=== PATIENT | female | born 1950 | race Caucasian/White ===

== ENCOUNTER 2016-05-23 04:36 | Inpatient (IN) | payer MEDICARE ==
[~2016-05-23 04:36] MED LIST: BUSPIRONE HCL15 MG PO; DEMECLOCYCLINE300 MG PO; LEVOTHYROXINE50 MCG PO; METOPROLOL SUC100 MG PO; NEURONTIN 300300 MG PO; NORCO 7.5-3251 EACH PO; OMEPRAZOLE20 MG PO; PREDNISONE 10 M10 MG PO; PROZAC 20 MG CA20 MG PO; QUETIAPINE FUMA50 MG PO; SILVADENE CREAM20 GM TOP; SPIRIVA18 MCG INH; SYMBICORT 16010.2 GM INH; ZANAFLEX4 M1 PO
[2016-05-23] MEDS ORDERED: TYLENOL 325MG325 MG PO (06:22)
[2016-05-23] MEDS ORDERED: LIPITOR TAB 2020 MG PO (06:24)
[2016-05-23] MEDS ORDERED: NORVASC 5 MG TAB5 MG PO (06:24)
[2016-05-23] MEDS ORDERED: CATAPRES-TTS 11 EACH TD (06:28)
[2016-05-23] MEDS ORDERED: COLESTID1 GM PO (06:29)
[2016-05-23] MEDS ORDERED: PHENERGAN 25 MG25 M1 PO (06:30)
[2016-05-23] MEDS ORDERED: LASIX40 MG PO (06:34)
[2016-05-23] MEDS ORDERED: LISINOPRIL30 MG PO (06:36)
[2016-05-23 08:19] LABS: HEMOGLOBIN 8.6 gm/dl (12.3-15.3); RED BLOOD COUNT 2.62 M/UL (4.00-5.10); WHITE BLOOD COUNT 16.4 K/UL (4.5-11.0)
[2016-05-23 08:45] LABS: BUN/CREATININE RATIO 23 (0-10)
[2016-05-23 13:19] LABS: HEMOGLOBIN 9.5 gm/dl (12.3-15.3); WHITE BLOOD COUNT 15.3 K/UL (4.5-11.0)
[2016-05-23 13:20] LABS: RED BLOOD COUNT 2.96 M/UL (4.00-5.10)
[2016-05-24 03:41] LABS: HEMOGLOBIN 8.5 gm/dl (12.3-15.3); RED BLOOD COUNT 2.65 M/UL (4.00-5.10); WHITE BLOOD COUNT 18.5 K/UL (4.5-11.0)
[2016-05-24 03:59] LABS: BUN/CREATININE RATIO 24 (0-10)
[2016-05-24 19:16] LABS: HEMOGLOBIN 9.2 gm/dl (12.3-15.3); RED BLOOD COUNT 2.88 M/UL (4.00-5.10); WHITE BLOOD COUNT 22.5 K/UL (4.5-11.0)
[2016-05-24 19:35] LABS: BUN/CREATININE RATIO 19 (0-10)
[2016-05-25 04:35] LABS: HEMOGLOBIN 8.8 gm/dl (12.3-15.3); RED BLOOD COUNT 2.74 M/UL (4.00-5.10)
[2016-05-25 05:09] LABS: WHITE BLOOD COUNT 15.9 K/UL (4.5-11.0)
[2016-05-25 05:18] LABS: BUN/CREATININE RATIO 21 (0-10)
[2016-05-26 04:13] LABS: RED BLOOD COUNT 2.75 M/UL (4.00-5.10); WHITE BLOOD COUNT 10.8 K/UL (4.5-11.0)
[2016-05-26 04:23] LABS: BUN/CREATININE RATIO 25 (0-10)
[2016-05-27 05:54] LABS: BUN/CREATININE RATIO 19 (0-10)
[2016-05-28 05:51] LABS: HEMOGLOBIN 10.3 gm/dl (12.3-15.3)
[2016-05-28 05:56] LABS: RED BLOOD COUNT 3.22 M/UL (4.00-5.10); WHITE BLOOD COUNT 7.8 K/UL (4.5-11.0)
[2016-05-28 06:15] LABS: BUN/CREATININE RATIO 18 (0-10)
[2016-05-29 06:40] LABS: HEMOGLOBIN 9.8 gm/dl (12.3-15.3); RED BLOOD COUNT 3.12 M/UL (4.00-5.10)
[2016-05-29 06:58] LABS: BUN/CREATININE RATIO 19 (0-10)
[2016-05-30 05:55] LABS: HEMOGLOBIN 9.5 gm/dl (12.3-15.3); RED BLOOD COUNT 2.98 M/UL (4.00-5.10)
[2016-05-30 05:56] LABS: WHITE BLOOD COUNT 9.8 K/UL (4.5-11.0)
[2016-05-30 06:17] LABS: BUN/CREATININE RATIO 24 (0-10)
[2016-05-31 05:35] LABS: HEMOGLOBIN 9.6 gm/dl (12.3-15.3); RED BLOOD COUNT 2.97 M/UL (4.00-5.10); WHITE BLOOD COUNT 11.9 K/UL (4.5-11.0)
[2016-06-01 05:49] LABS: HEMOGLOBIN 8.8 gm/dl (12.3-15.3); RED BLOOD COUNT 2.81 M/UL (4.00-5.10); WHITE BLOOD COUNT 9.4 K/UL (4.5-11.0)
[2016-06-01 06:13] LABS: BUN/CREATININE RATIO 31 (0-10)
== END 2016-06-01 13:38 | DRG 871 ==
LOC: CCU 05:34 → M/S 05:34 → CCU 07:41 → M/S 05-26 08:32
PROVIDERS: Family Medicine; Internal Medicine Pulmonary Disease; ADMIT Family Medicine
PROC: 5A1945Z Respiratory Ventilation, 24-96 Consecutive Hours (ICD-10-PCS; principal; 2016-05-23)
DX: A41.9 Sepsis, unspecified organism (principal); J96.21 Acute and chronic respiratory failure with hypoxia; I50.33 Acute on chronic diastolic (congestive) heart failure; J69.0 Pneumonitis due to inhalation of food and vomit; R65.21 Severe sepsis with septic shock; E87.2 Acidosis; E46 Unspecified protein-calorie malnutrition; Z68.1 Body mass index [BMI] 19.9 or less, adult; G61.81 Chronic inflammatory demyelinating polyneuritis; E87.1 Hypo-osmolality and hyponatremia; C34.90 Malignant neoplasm of unspecified part of unspecified bronchus or lung; J98.11 Atelectasis; K86.1 Other chronic pancreatitis; I11.0 Hypertensive heart disease with heart failure; J44.9 Chronic obstructive pulmonary disease, unspecified; I70.203 Unspecified atherosclerosis of native arteries of extremities, bilateral legs; I25.10 Atherosclerotic heart disease of native coronary artery without angina pectoris; D63.8 Anemia in other chronic diseases classified elsewhere; E03.9 Hypothyroidism, unspecified; E78.5 Hyperlipidemia, unspecified; I27.2 Other secondary pulmonary hypertension; I07.1 Rheumatic tricuspid insufficiency; K21.9 Gastro-esophageal reflux disease without esophagitis; K12.0 Recurrent oral aphthae; B95.3 Streptococcus pneumoniae as the cause of diseases classified elsewhere; R51 Headache; R13.10 Dysphagia, unspecified; G89.29 Other chronic pain; M54.9 Dorsalgia, unspecified; F17.210 Nicotine dependence, cigarettes, uncomplicated; F41.9 Anxiety disorder, unspecified; F32.9 Major depressive disorder, single episode, unspecified; Z87.01 Personal history of pneumonia (recurrent); Z92.3 Personal history of irradiation; Z95.820 Peripheral vascular angioplasty status with implants and grafts; Z91.11 Patient's noncompliance with dietary regimen; Z87.898 Personal history of other specified conditions; Z79.1 Long term (current) use of non-steroidal anti-inflammatories (NSAID); Z79.51 Long term (current) use of inhaled steroids; Z79.891 Long term (current) use of opiate analgesic; Z79.899 Other long term (current) drug therapy; Z88.2 Allergy status to sulfonamides; Z91.048 Other nonmedicinal substance allergy status; Z96.641 Presence of right artificial hip joint; Z90.710 Acquired absence of both cervix and uterus; Z90.49 Acquired absence of other specified parts of digestive tract; Z98.890 Other specified postprocedural states; Z82.49 Family history of ischemic heart disease and other diseases of the circulatory system; Z83.3 Family history of diabetes mellitus
CPT/HCPCS: 36415; 36600; 71010; 71020; 80048; 80053; 80202; 82550; 82553; 82803; 83605; 83690; 84484; 85025; 85027; 87040; 87086; 92526; 92610; 93005; 94002; 94003; 94640; 94664; 97110; 97116; 97530; A4628; C9113; J1650; J1940; J1956; J2185; J2250; J2270; J2930; J3370; J7030; J7040; J7050; J7070